=== PATIENT | female | born 1980 | race Caucasian/White ===

== ENCOUNTER 2019-05-29 09:37 | Emergency (ER) | payer BC ==
[~2019-05-29] VITALS: Ht 165.1 cm; Wt 61.2 kg
[~2019-05-29 09:37] MED LIST: PRENATAL; ZOFRAN ODT4 MG PO
[2019-05-29] MEDS ORDERED: ZPAK PO (09:53)
[2019-05-29] MEDS ORDERED: LITHATE20 MG PO (09:53)
[2019-05-29] MEDS ORDERED: CLONAZEPAM 0.50.5 M1 PO (09:53)
[2019-05-29] MEDS ORDERED: LEXAPRO 10 MG T10 M2 PO (09:54)
[2019-05-29] MEDS ORDERED: VRAYLAR1 EACH PO (09:54)
[2019-05-29 10:26] LABS: INFLUENZA A ANTIGEN Negative (Negative); INFLUENZA B ANTIGEN Negative (Negative)
[2019-05-29 10:44] VITALS: BP 112/66
== END 2019-05-29 10:45 | disposition home or self-care (01) ==
LOC: M.ERS 09:37
PROVIDERS: Family Medicine
DX: J06.9 Acute upper respiratory infection, unspecified (principal); F41.9 Anxiety disorder, unspecified; F32.9 Major depressive disorder, single episode, unspecified; Z88.5 Allergy status to narcotic agent; Z88.6 Allergy status to analgesic agent; Z87.01 Personal history of pneumonia (recurrent); Z90.710 Acquired absence of both cervix and uterus